=== PATIENT | female | born 1985 | race African-American/Black ===

== ENCOUNTER 2017-09-04 11:02 | Emergency (ER) | payer OTHER ==
[~2017-09-04] VITALS: Ht 170.2 cm; Wt 133.4 kg
[~2017-09-04 11:02] MED LIST: KETO10TA2 PO; MACROBID 100 M100 MG PO; SEPTRA DS TABLE1 TAB; TENCON TABLET1 TAB PO; ULTRACET PO
== END 2017-09-04 14:00 | disposition home or self-care (01) ==
LOC: ER 11:02
DX: J11.1 Influenza due to unidentified influenza virus with other respiratory manifestations (principal); B34.9 Viral infection, unspecified